=== PATIENT | female | born 1980 ===

== ENCOUNTER 2020-05-30 20:56 | Emergency (ER) | payer SELFPAY ==
[2020-05-30 21:25] LABS: RED BLOOD COUNT 3.98 M/UL (4.00-5.10); WHITE BLOOD COUNT 7.5 K/UL (4.5-11.0)
[2020-05-30 21:58] LABS: BUN/CREATININE RATIO 20 (0-10)
[2020-05-30] MEDS ORDERED: FLOVENT 110.088 GM/I INH (23:08)
[2020-05-30] MEDS ORDERED: PROAIR DIGIHAL90 MCG INH (23:08)
[2020-05-30] MEDS ORDERED: MEDROL DOSEPAK 24 MG PO (23:08)
== END 2020-05-31 | disposition home or self-care (01) ==
LOC: ER1 20:56
PROVIDERS: Emergency Medicine
DX: J45.901 Unspecified asthma with (acute) exacerbation (principal); Z20.822 Contact with and (suspected) exposure to COVID-19
CPT/HCPCS: 36415; 71045; 80053; 83605; 83690; 84484; 85025; 85610; 85730; 93005; 94640; 94664; 96374; 99285; J2930; U0002